=== PATIENT | female | born 2000 | race African-American/Black ===

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

== ENCOUNTER 2020-08-25 11:07 | Emergency (ER) | payer SELFPAY ==
[~2020-08-25] VITALS: Ht 152.4 cm; Wt 59.1 kg
[~2020-08-25 11:07] MED LIST changes: +AMOXICILLIN 50500 MG PO
[2020-08-25 11:11] VITALS: TEMP 98.3
[2020-08-25 11:36] LABS: STREP SCREEN NEGATIVE
[2020-08-25] MEDS ORDERED: AMOXICILLIN875 MG PO (12:00)
[2020-08-25 12:05] VITALS: BP 120/74; PULSE 79
== END 2020-08-25 12:10 | disposition home or self-care (01) ==
LOC: COL.ER 11:07
PROVIDERS: Nurse Practitioner
DX: J02.9 Acute pharyngitis, unspecified (principal); F17.210 Nicotine dependence, cigarettes, uncomplicated